=== PATIENT | male | born 1975 | race Caucasian/White ===

== ENCOUNTER 2019-11-18 11:54 | Emergency (ER) | payer MEDICAID ==
[~2019-11-18] VITALS: Ht 160 cm; Wt 71.7 kg
[2019-11-18 12:15] VITALS: BP 140/76
--- NOTE | 2019-11-18 12:20 | NUR ---
PT TO ER LOBBY WITH VS STABLE
--- NOTE | 2019-11-18 13:30 | NUR ---
1ST CALL PATIENT LEFT WITHOUT BEING SEEN BY . NO FURTHER CARE PROVIDED FOR PATIENT.
--- NOTE | 2019-11-18 13:36 | NUR ---
PATIENT LEFT WITHOUT BEING SEEN BY . NO FURTHER CARE PROVIDED FOR PATIENT.
== END 2019-11-18 13:30 | disposition left against medical advice (07) ==
LOC: MED 11:54
DX: K13.0 Diseases of lips (principal); Z53.21 Procedure and treatment not carried out due to patient leaving prior to being seen by health care provider